=== PATIENT | female | born 1960 | race Caucasian/White ===

== ENCOUNTER → 2025-05-04 | Outpatient (CLI) | payer OTHER, SELFPAY ==
--- NOTE | 2025-05-04 14:55 | RAD_ITS ---
PROCEDURE: PELVIS 1 OR 2 VIEWS 05/04/2025 REASON FOR EXAM: PAIN TECHNIQUE: Procedure Code: RADPEL Modality: DX Procedure: PELVIS 1 OR 2 VIEWS COMPARISON: None FINDINGS: Hardware: None Bones: No fracture Joints: Normal alignment at the hips. Mild degenerative change of the symphysis pubis. Mild curvature lumbar spine versus positioning. soft tissues: Pelvic phleboliths are seen. RAD/Pelvis 1 or 2 Views IMPRESSION: No acute abnormality. See above. Reading Location: [id number]
[2025-05-04 17:50] LABS: Hematocrit 46.6 % (37-47); Hemoglobin 15.0 g/dL (12.0-15.0); Immature Granulocytes Count 0.020 X10^3/uL (0.0-0.0); Mean Corp Hgb Conc 32.2 g/dL (32-36); Mean Corpuscular Volume 92.8 fL (81-99); Mean Platelet Vol. 10.1 fl (6.2-12.0); NRBC Flagged by Analyzer 0 % (0-5); Platelet Count 324 K/mm3 (150-450); RBC Distribution Width CV 14.1 % (11.6-14.6); RBC Distribution Width SD 48.5 fl (35.1-43.9); Red Blood Count 5.02 M/mm3 (4.2-5.4); White Blood Count 7.6 K/mm3 (4.4-11.0)
[2025-05-04 18:34] LABS: AST(SGOT) 24 U/L (<=31); Alanine Aminotransfer ALT/SGPT 12 U/L (<=34); Albumin, Serum 4.5 g/dL (3.4-4.8); Alkaline Phosphatase 83 U/L (35-104); Anion Gap 14 (5-15); BUN 16 mg/dL (4-19); BUN/Creat Ratio 20.4 RATIO (10-20); Calcium,Total 10.1 mg/dL (7.6-11.0); Carbon Dioxide 20.9 mmol/L (21.0-32.0); Chloride 103 mmol/L (98-108); Globulin 2.8 g/dL (2.2-4.2); Glucose 97 mg/dL (70-99); Hepatitis B Surface Antigen Nonreactive (Nonreactive); Hepatitis C Antibody Nonreactive (Nonreactive); Potassium 4.4 mmol/L (3.3-5.1); Vitamin D,25 Hydroxy 42.9 ng/mL (30-100)
[2025-05-04 18:39] LABS: CRP < 3.00 mg/L (0.0-3.0)
[2025-05-07 17:08] LABS: QNTFERON TB Mitogen Value > 10.00 IU/mL (.); QNTFERON TB Nil Value 0.01 IU/mL (.); QNTFERON TB1+ Ag Value 0.03 IU/mL (.); QNTFERON TB2+ Ag Value 0.02 IU/mL (.); QNTIFERON TB Positive Criteria Negative (Negative)
[2025-05-09 12:09] LABS: ANTINUCLEAR ANTIBODIES DIRECT Negative (Negative)
== END | disposition home or self-care (01) ==
LOC: MTLAB 14:54
PROVIDERS: Referring Provider Internal Medicine Rheumatology; Visit Provider Internal Medicine Rheumatology
DX: M06.09 Rheumatoid arthritis without rheumatoid factor, multiple sites (principal); Z79.899 Other long term (current) drug therapy; M18.0 Bilateral primary osteoarthritis of first carpometacarpal joints; M17.0 Bilateral primary osteoarthritis of knee
CPT/HCPCS: 36415; 72170; 80053; 82306; 85025; 85652; 86038; 86140; 86200; 86431; 86480; 86706; 86803; 87340